=== PATIENT | male | born 1995 | race Two or more races ===

== ENCOUNTER 2021-09-14 21:03 | Inpatient (IN) | payer OTHER ==
[~2021-09-14] VITALS: Ht 190.5 cm; Wt 152.0 kg
[2021-09-14] MEDS ORDERED: MORPHINE SULFATE 4 MG/ML SYR/VIAL IV ONE (22:30)
[2021-09-15] MEDS ORDERED: PIPERACILLIN-TAZOB 3.375GM 100 ML IV ONE (06:45)
[2021-09-15 07:03] LABS: Basophils # (auto) 0 10 ^3/uL (0-0.2); Basophils % (auto) 0.3 % (0.0-2.0); Eosinophils # (auto) 0 10 ^3/uL (0-0.8); Eosinophils % (auto) 0.3 % (0.0-7.0); Hematocrit 43.8 % (41.0-53.0); Hemoglobin 15.1 g/dL (13.5-17.5); Lymphocytes % (auto) 6.7 % (10.0-50.0); Mean Corpuscular Hemoglobin 30.2 pg (28.0-32.0); Mean Corpuscular Hgb Conc. 34.4 g/dL (32.0-36.0); Mean Corpuscular Volume 87.8 fL (80.0-100.0); Monocytes # (auto) 1.1 10 ^3/uL (0-1.3); Monocytes % (auto) 7.5 % (0.0-12.0); Neutrophils # (auto) 12.5 10 ^3/uL (1.6-8.6); Neutrophils % (auto) 85.2 % (37.0-80.0); Red Blood Cells 4.98 10^6/uL (4.5-5.90); Red Cell Distribution Width 12.4 % (11.8-14.3); White Blood Cell 14.7 10^3/uL (4.4-10.8)
[2021-09-15 07:18] LABS: Albumin 3.6 g/dL (3.4-5.0); Calcium 8.8 mg/dL (8.5-10.1)
[2021-09-15 07:21] LABS: BUN/Creatinine Ratio 11.3; Bilirubin, Total 1.5 mg/dL (0.2-1.0); Total Protein 7.8 g/dL (6.4-8.2)
[2021-09-15 08:00] VITALS: BP 134/75
[2021-09-15 09:00] VITALS: BP 134/78
[2021-09-15] MEDS ORDERED: ONDANSETRON HCL 4 MG/2 ML VIAL IV PRN (10:00)
[2021-09-15] MEDS ORDERED: VANCOMYCIN PER PHARMACY 0 MG IV SCH (10:00)
[2021-09-15] MEDS ORDERED: HYDROcodone-ACET 10/325MG TAB PO PRN (10:00)
[2021-09-15] MEDS ORDERED: ENOXAPARIN SOD 40 MG/0.4 ML SYRINGE SC SCH (10:00)
[2021-09-15] MEDS ORDERED: VANCOMYCIN 1GM/250ML 250 ML IV ONE (10:00)
[2021-09-15 13:00] VITALS: BP 130/81
[2021-09-15] MEDS ORDERED: PIPERACILLIN-TAZOB 3.375GM 100 ML IV SCH (14:00)
[2021-09-15 17:00] VITALS: BP 127/73
[2021-09-15 20:00] VITALS: BP 95/58
[2021-09-15 22:00] VITALS: BP 114/63
[2021-09-15] MEDS: VANCOMYCIN 1GM/250ML 250 ML IV SCH (22:00)
[2021-09-16] MEDS: PIPERACILLIN-TAZOB 3.375GM 100 ML IV SCH ×2 (02:24→10:00)
[2021-09-16 05:18] VITALS: BP 123/85
[2021-09-16 05:34] LABS: Basophils # (auto) 0.1 10 ^3/uL (0-0.2); Basophils % (auto) 0.6 % (0.0-2.0); Eosinophils # (auto) 0.1 10 ^3/uL (0-0.8); Eosinophils % (auto) 0.7 % (0.0-7.0); Hematocrit 42.9 % (41.0-53.0); Hemoglobin 15.1 g/dL (13.5-17.5); Lymphocytes # (auto) 1.5 10 ^3/uL (0.4-5.4); Lymphocytes % (auto) 11.7 % (10.0-50.0); Mean Corpuscular Hemoglobin 30.4 pg (28.0-32.0); Mean Corpuscular Hgb Conc. 35.3 g/dL (32.0-36.0); Mean Corpuscular Volume 86.2 fL (80.0-100.0); Monocytes # (auto) 0.9 10 ^3/uL (0-1.3); Monocytes % (auto) 7.2 % (0.0-12.0); Neutrophils # (auto) 10.3 10 ^3/uL (1.6-8.6); Neutrophils % (auto) 79.8 % (37.0-80.0); Red Blood Cells 4.98 10^6/uL (4.5-5.90); Red Cell Distribution Width 12.7 % (11.8-14.3)
[2021-09-16 08:00] VITALS: BP 133/78
[2021-09-16] MEDS ORDERED: LISINOPRIL 20 MG TAB PO SCH (10:00)
[2021-09-16] MEDS: VANCOMYCIN 1GM/250ML 250 ML IV SCH (10:00)
[2021-09-16 12:00] VITALS: BP 129/62
[2021-09-16] MEDS ORDERED: CIPR500T4 PO (13:36)
== END 2021-09-16 13:30 | disposition left against medical advice (07) | DRG 603 ==
LOC: EEVIPCON 21:05 → ER 21:05 → OVERFLOW 09-15 06:28 → WEST WING 09-15 08:14
PROVIDERS: ADMIT Family Medicine; ATTEND Internal Medicine
DX: L03.112 Cellulitis of left axilla (principal); N63.32 Unspecified lump in axillary tail of the left breast; I10 Essential (primary) hypertension; Z20.822 Contact with and (suspected) exposure to COVID-19; Z82.49 Family history of ischemic heart disease and other diseases of the circulatory system; Z83.3 Family history of diabetes mellitus
CPT/HCPCS: 36415; 73200; 76881; 80053; 82565; 82962; 85025; 87040; 87426; 96365; 96375; G0378; J2543